=== PATIENT | female | born 2000 | race African-American/Black ===

== ENCOUNTER 2023-08-14 19:50 | Observation (INO) ==
[2023-08-14 20:04] VITALS: BP 134/89; RESP 16
[2023-08-14] MEDS: SODIUM CHLORIDE 1,000 ML IV ONE ×2 (20:18→21:18)
[2023-08-14 20:20] LABS: BASOPHILS % (AUTO) 0.3 % (0.0-3.0); EOSINOPHILS # (AUTO) 0.2 K/ul (0.0-0.7); EOSINOPHILS % (AUTO) 2.1 % (0.0-7.0); HEMATOCRIT 40.6 % (37.0-47.0); HEMOGLOBIN 13.6 g/dl (12.0-16.0); IMMATURE GRANULOCYTE % (AUTO) 0.2 % (0.0-5.0); LYMPHOCYTES # (AUTO) 2.8 K/uL (0.60-3.4); LYMPHOCYTES % (AUTO) 28.3 (10.0-50.0); MEAN CORPUSCULAR HEMOGLOBIN 31.1 pg (27.0-31.0); MEAN CORPUSCULAR HGB CONC 33.5 (31.8-35.4); MEAN CORPUSCULAR VOLUME 92.7 fl (81.0-99.0); MONOCYTES # (AUTO) 0.8 K/uL (0.4-2.0); MONOCYTES % (AUTO) 7.7 (0-10); NEUTROPHILS % (AUTO) 61.4 % (42.2-75.2); PLATELET COUNT 277 10^3/uL (140-440); RDW COEFFICIENT OF VARIATION 12.5 % (11.6-14.8); RED BLOOD COUNT 4.38 10^6/ul (4.20-5.40); WHITE BLOOD COUNT 9.73 K/ul (4.6-10.2)
--- NOTE | 2023-08-14 20:21 | ED.PDOC ---
General ED Provider: Dr. SHANTA CRISTOBAL MD Chief Complaint: Diabetes Stated Complaint: 23 years old female past medical history of type 1 diabetes coming to the emergency room for high blood sugar at home. Patient ran out of her insulin 2 days ago and has been getting high blood sugar readings she has a history of DKA before that she is complaining of feeling weak and abdominal pain with nausea. Otherwise she denies any fever, chest pain, shortness of breath, change in bowel or urine. Time Seen by Provider: 08/14/23 20:00 Information Source: Patient Nursing and Triage Documentation Reviewed and Agree: Yes What is Opioid Naive?: *Opioid Naive implies the patient is not already taking opioids or not chronically receiving opioids on a daily basis. *PRN dosing is not "usually" associated with tolerance. *Patients are at higher risk of over-sedation and aspiration. What is Opioid Tolerant?: *Opioid Tolerance implies less than the expected response to an opioid. *Acquired tolerance is defined by the patient taking 60mg of oral morphine daily (or equianalgesic dose of another opioid) for 1 week or more. *Often associated with chronic pain. *May take more than usual dose to achieve desired pain control. Review of Systems Review Of Systems Constitutional: Reports Weakness All Other Systems: Reviewed and Negative PFSH Female Reproductive History Menstrual Hx Hysterectomy: No Hx Tubal Ligation: No Physical Exam Physical Exam Appearance: Reports Well-appearing Ill-appearing: None Pain Distress: None Eyes: Reports MARILIA Respiratory: Reports Airway patent, Breath sounds clear and Breath sounds equal Cardiovascular: Reports RRR, Pulses normal, No rub and No murmur Musculoskeletal: Reports Normal strength, ROM intact and No edema Neurological: Reports Sensation intact, Motor intact, Alert and Oriented Psychiatric: Reports Affect appropriate Interpretation EKG Interpretation EKG Interpretation By: ED Physician Time of EKG #1: 20:34 Rate: Normal Rhythm: Sinus Ectopy: None Pickrell: NL ST Segment: Normal Interpretation: no signs of acute ischemia Course Course 08/14/23 20:09 08/14/23 20:09 Orders, Labs, Meds: Lab Review 08/14/23 08/14/23 08/14/23 20:09 20:30 20:45 WBC 9.73 RBC 4.38 Hgb 13.6 Hct 40.6 MCV 92.7 MCH 31.1 H MCHC 33.5 RDW Coeff of Jeffy 12.5 Plt Count 277 Immature Gran % (Auto) 0.2 Neut % (Auto) 61.4 Lymph % (Auto) 28.3 [place] % (Auto) 7.7 Eos % (Auto) 2.1 Baso % (Auto) 0.3 Neut # (Auto) 6.0 Lymph # (Auto) 2.8 [place] # (Auto) 0.8 Eos # (Auto) 0.2 Baso # (Auto) 0.0 Immature Gran # (Auto) 0.0 VBG pH 7.35 VBG pCO2 48 VBG pO2 24 L VBG HCO3 26.5 H VBG O2 Saturation 38.9 L Sodium 126.0 L Potassium 4.40 Chloride 96.0 L Carbon Dioxide 23.0 Anion Gap 11.40 BUN 10.0 Creatinine 0.50 L Estimated GFR (MDRD) 185.00 BUN/Creatinine Ratio 20.00 Glucose 745.8 H* Hemoglobin A1c 11.48 H Calcium 8.80 Total Bilirubin 0.40 AST 22.0 ALT 17.0 Alkaline Phosphatase 106.0 Total Protein 7.20 Albumin 3.70 Globulin 3.50 Albumin/Globulin Ratio 1.05 Urine Color Other Urine Clarity Clear Urine pH 7.0 Ur Specific [place] 1.015 Urine Protein Negative Urine Glucose (UA) 2+ H Urine Ketones 2+ H Urine Blood 1+ H Urine Nitrite Negative Urine Bilirubin Negative Urine Urobilinogen 0.2 Ur Leukocyte Esterase Negative Urine Microscopic RBC 0-2 Ur Squamous Epith Cells 2-5 Orders Category Date Time Status ADMIT OBSERVATION [PLACE PATIENT OBSERVATION] .TO ADMISSION 08/14/23 21:46 Active MEDSURG (MONITORED BED) EKG-(ED ONLY) Stat CARDIO 08/14/23 21:09 Ordered ACCUCHECK (MED/SURG, SCU) [BLOOD GLUCOSE MONITORING ( CARE 08/14/23 21:46 Active MED/SURG)] Q1HR ACTIVITY .Early Mobilization for VTE Prevention CARE 08/14/23 21:46 Active INTAKE & OUTPUT Q8HR CARE 08/14/23 21:48 Active REMINDER: Give Insulin if Needed Q1HR CARE 08/14/23 21:46 Active TELEMETRY MONITORING TELE CARE 08/14/23 21:46 Active VITAL SIGNS Q4HR CARE 08/14/23 21:48 Active NOTHING BY MOUTH DIETARY 08/15/23 Breakfast Ordered ACCUCHECK (ED) [ED ACCUCHECK ASSESSMENT] Q1-2H EMERGENCY 08/14/23 20:48 Active Saline Lock [ED IV/MEDIPORT/POWERPORT] .ONCE EMERGENCY 08/14/23 20:14 Active BMP [BASIC METABOLIC PANEL] Timed LAB 08/15/23 01:00 Ordered CBC W/ AUTO DIFF DAILY@0600 LAB 08/15/23 06:00 Ordered CBC W/ AUTO DIFF DAILY@0600 LAB 08/16/23 06:00 Ordered CBC W/ AUTO DIFF Stat LAB 08/14/23 20:09 Completed CMP [COMPREHENSIVE METABOLIC PANEL] Stat LAB 08/14/23 20:09 Completed COMPREHENSIVE METABOLIC PANEL DAILY@0600 LAB 08/15/23 06:00 Ordered COMPREHENSIVE METABOLIC PANEL DAILY@0600 LAB 08/16/23 06:00 Ordered HEMOGLOBIN A1C Stat LAB 08/14/23 20:09 Completed URINALYSIS C & S IF INDICATED Stat LAB 08/14/23 20:30 Completed VBG [VENOUS BLOOD GAS] Stat LAB 08/14/23 20:45 Completed 0.9 % Sodium Chloride [Saline Flush] Meds 08/14/23 20:14 Active 1 syr IVF PRN PRN Acetaminophen [Tylenol] Meds 08/14/23 21:46 Active 650 mg PO Q4H PRN Dextrose 50 % in Water [Dextrose 50%-Water Abboject] Meds 08/14/23 21:46 Active 50 ml IVP ONCE PRN Insulin Glargine,Hum.rec.anlog [Lantus] Meds 08/15/23 09:00 Active 30 unit SUBCUT DAILY Insulin Regular, Human [Humulin R] Meds 08/14/23 21:02 Discontinued 15 unit SUBCUT ONCE STA Insulin Regular, Human [Humulin R] Meds 08/14/23 20:14 Discontinued 8 unit IVP ONCE STA Insulin Regular, Human [Humulin R] Meds 08/14/23 21:46 Active See Protocol SUBCUT PRN PRN Sodium Chloride 0.9% [Sodium Chloride] 1,000 ml Meds 08/14/23 21:32 Active IV 125 mls/hr Sodium Chloride 0.9% [Sodium Chloride] 1,000 ml Meds 08/14/23 22:00 Active IV 125 mls/hr Sodium Chloride 0.9% [Sodium Chloride] 1,000 ml Meds 08/14/23 20:14 Discontinued IV BOLUS Medications Generic Name Dose Route Start Last Admin Trade Name Maribeth PRN Reason Stop Dose Admin Acetaminophen 650 mg 08/14/23 21:46 Acetaminophen 325 Mg Tablet PO Q4H PRN Mild Pain Dextrose 50 ml 08/14/23 21:46 Dextrose 50 % In Water 50 Ml Disp.Syrin IVP ONCE PRN Unconscious Hypoglycemia Protocol Sodium Chloride 1,000 mls @ 125 mls/hr 08/14/23 22:00 08/14/23 22:03 Sodium Chloride IV Not Given .Q8H RONNY Insulin Glargine 30 unit 08/15/23 09:00 Insulin Glargine,Hum.Rec.Anlog 100 Units/Ml SUBCUT DAILY RONNY Insulin Human Regular 0 unit 08/14/23 21:46 Insulin Regular, Human 100 Unit/Ml (10ml) Vial SUBCUT PRN PRN Hyperglycemia Protocol Ondansetron HCl 4 mg 08/14/23 21:55 Ondansetron Hcl/Pf 4 Mg/2 Ml Sdv IVP Q6H PRN Nausea / Vomiting Sodium Chloride 1 syr 08/14/23 20:14 0.9% Sodium Chloride 10 Ml Disp.Syrin IVF PRN PRN To flush IV Discontinued Medications Generic Name Dose Route Start Last Admin Trade Name Maribeth PRN Reason Stop Dose Admin Sodium Chloride 1,000 mls @ 1,000 mls/hr 08/14/23 20:14 08/14/23 21:18 Sodium Chloride IV 08/14/23 21:13 Infused BOLUS ONE Infusion Sodium Chloride 1,000 mls @ 125 mls/hr 08/14/23 21:32 08/14/23 21:18 Sodium Chloride IV 08/15/23 05:31 125 mls/hr .Q8H ONE Administration Insulin Human Regular 8 unit 08/14/23 20:14 08/14/23 20:22 Insulin Regular, Human 100 Unit/Ml (10ml) Vial 0.1 unit/kg (8 unit) 08/14/23 20:15 8 unit IVP Administration ONCE STA Insulin Human Regular 15 unit 08/14/23 21:02 08/14/23 21:23 Insulin Regular, Human 100 Unit/Ml (10ml) Vial SUBCUT 08/14/23 21:03 15 unit ONCE STA Administration Vital Signs: Temp Pulse Resp BP Pulse Ox 08/14/23 19:52 98.8 F 86 16 134/89 100 Patient with type 1 diabetes, with HHS blood sugar 750 no DKA no other abnormality patient was given 8 units of regular insulin IV and 15 units of insulin subcutaneous blood sugar readings still above 500. Called the hospitalist on-call Mario discussed the patient case with her and she accepted the patient to be admitted under her service for further blood sugar control. Discharge Plan Discharge Patient Disposition: ADMITTED INPATIENT Discharge Problem: Hyperosmolar hyperglycemic state (HHS) Did you review [place] EXTRACTOR MACHINE OPERATOR for ALL controlled substances?: Not Applicable ED Provider: SHANTA CRISTOBAL Condition: Stable Physician Progress Note: []
[2023-08-14] MEDS: HUMULIN R IVP STA (20:22)
[2023-08-14 20:36] LABS: BILIRUBIN,URINE Negative (NEGATIVE); CLARITY,URINE Clear (CLEAR); GLUCOSE, URINE (UA) 2+ (NEGATIVE); KETONES,URINE 2+ (NEGATIVE); LEUKOCYTE ESTERASE ,URINE Negative (NEGATIVE); NITRITE,URINE Negative (NEGATIVE); PROTEIN,URINE Negative (NEGATIVE); URINE, BLOOD 1+ (NEGATIVE); UROBILINOGEN,URINE 0.2 (0.2)
[2023-08-14 20:37] LABS: ALBUMIN 3.7 g/dL (3.5-5.0); BILIRUBIN,TOTAL 0.4 mg/dL (0.2-1.3); CALCIUM 8.8 mg/dL (8.4-10.2); CREATININE 0.5 mg/dL (0.60-1.30); POTASSIUM 4.4 mmol/L (3.5-5.1); TOTAL PROTEIN 7.2 g/dL (6.3-8.2)
[2023-08-14 20:51] LABS: COLOR,URINE OTHER (YELLOW)
[2023-08-14 20:53] LABS: URINE RBC, MICROSCOPIC 0-2 (0-2)
[2023-08-14 20:57] LABS: VBG HCO3 26.5 (22-26); VBG PH 7.35 (7.30-7.40)
[2023-08-14 20:58] LABS: VBG OXYGEN SATURATION 38.9 (60-80)
[2023-08-14 21:01] LABS: GLUCOSE 745.8 mg/dL (74-106)
[2023-08-14] MEDS: HUMULIN R SUBCUT STA (21:23)
[2023-08-14] MEDS ORDERED: TYLENOL PO PRN (21:46)
[2023-08-14] MEDS ORDERED: DEXTROSE 50%-WATER ABBOJECT IVP PRN (21:46)
[2023-08-14] MEDS ORDERED: HUMULIN R SUBCUT PRN (21:46)
[2023-08-14] MEDS ORDERED: ZOFRAN 4 MG/2 ML IVP PRN (21:55)
[2023-08-14] MEDS: SODIUM CHLORIDE 1,000 ML IV SCH (22:03)
[2023-08-14 22:37] LABS: SARS COV-2 RNA RAPID NAAT NEGATIVE (NEGATIVE)
[2023-08-14] MEDS: HUMULIN R SUBCUT ONE (23:38)
[2023-08-15 00:07] VITALS: PULSE 84; TEMP 97.7; BMI 28.4
[2023-08-15] MEDS ORDERED: LANTUS SUBCUT SCH (09:00)
--- NOTE | 2023-08-15 09:49 | PCM.SS ---
Provider Provider: MOO HAYES, [facility] Ad[facility] Date Admission Date: 08/14/23 Discharge Date Discharge Date: 08/15/23 Chief Complaint Reason For Visit: HHS History of Present Illness History of Present Illness: Admitted 08/14/23 21:53, this 23 year old AA/BLACK/F presented to the ER with complaints of lower abdominal cramping and nausea. Has pmh of type 1 diabetes. "Ran out of her insulin and needed new prescription from pcp in which she was unable to get". Blood glucose was found to be in 700s in ER without evidence of DKA. Admitted for HHS and hypokalemia. Around midnight patient reported to the nurse that she was anxious and was not staying here any longer. Nurse explained risks of leaving and benefits of staying. Patient left regardless. This HPI provided from ER provider on admission. This provider application project leader and accepted patient but no physical exam completed prior to patient leaving AMA. [facility] Social History Smoking and tobacco status: Never smoker Medications Mecications: Medications at Discharge (Home Meds & RX) insulin NPH-regular 70-30 U-100 insulin 100 unit/mL subcutaneous pen 2 unit (0.02 mL) subcut PRN PRN hyperglycemia #15 mL 07/28/23 insulin degludec 100 unit/mL (3 mL) subcutaneous pen 30 unit subcut DAILY 07/28/23 insulin lispro 100 unit/mL subcutaneous pen 1 sliding scale dose subcut TID-QID 07/28/23 Allergies Allergies Allergy/AdvReac Type Severity Reaction Status Date / Time No Known Allergies Allergy Verified 08/14/23 20:01 Labs This Visit Labs This Visit: Labs This Visit 08/14/23 08/14/23 08/14/23 20:09 20:30 20:45 WBC 9.73 RBC 4.38 Hgb 13.6 Hct 40.6 MCV 92.7 MCH 31.1 H MCHC 33.5 RDW Coeff of Jeffy 12.5 Plt Count 277 Immature Gran % (Auto) 0.2 Neut % (Auto) 61.4 Lymph % (Auto) 28.3 [place] % (Auto) 7.7 Eos % (Auto) 2.1 Baso % (Auto) 0.3 Neut # (Auto) 6.0 Lymph # (Auto) 2.8 [place] # (Auto) 0.8 Eos # (Auto) 0.2 Baso # (Auto) 0.0 Immature Gran # (Auto) 0.0 VBG pH 7.35 VBG pCO2 48 VBG pO2 24 L VBG HCO3 26.5 H VBG O2 Saturation 38.9 L Sodium 126.0 L Potassium 4.40 Chloride 96.0 L Carbon Dioxide 23.0 Anion Gap 11.40 BUN 10.0 Creatinine 0.50 L Estimated GFR (MDRD) 185.00 BUN/Creatinine Ratio 20.00 Glucose 745.8 H* Hemoglobin A1c 11.48 H Calcium 8.80 Total Bilirubin 0.40 AST 22.0 ALT 17.0 Alkaline Phosphatase 106.0 Total Protein 7.20 Albumin 3.70 Globulin 3.50 Albumin/Globulin Ratio 1.05 Urine Color Other Urine Clarity Clear Urine pH 7.0 Ur Specific [place] 1.015 Urine Protein Negative Urine Glucose (UA) 2+ H Urine Ketones 2+ H Urine Blood 1+ H Urine Nitrite Negative Urine Bilirubin Negative Urine Urobilinogen 0.2 Ur Leukocyte Esterase Negative Urine Microscopic RBC 0-2 Ur Squamous Epith Cells 2-5 SARS CoV-2 RNA Rapid MARY 08/14/23 08/14/23 21:55 23:00 WBC RBC Hgb Hct MCV MCH MCHC RDW Coeff of Jeffy Plt Count Immature Gran % (Auto) Neut % (Auto) Lymph % (Auto) [place] % (Auto) Eos % (Auto) Baso % (Auto) Neut # (Auto) Lymph # (Auto) [place] # (Auto) Eos # (Auto) Baso # (Auto) Immature Gran # (Auto) VBG pH VBG pCO2 VBG pO2 VBG HCO3 VBG O2 Saturation Sodium Potassium Chloride Carbon Dioxide Anion Gap BUN Creatinine Estimated GFR (MDRD) BUN/Creatinine Ratio Glucose 468.9 H D Hemoglobin A1c Calcium Total Bilirubin AST ALT Alkaline Phosphatase Total Protein Albumin Globulin Albumin/Globulin Ratio Urine Color Urine Clarity Urine pH Ur Specific [place] Urine Protein Urine Glucose (UA) Urine Ketones Urine Blood Urine Nitrite Urine Bilirubin Urine Urobilinogen Ur Leukocyte Esterase Urine Microscopic RBC Ur Squamous Epith Cells SARS CoV-2 RNA Rapid MARY Negative Review Review Statement: I have independently reviewed and interpreted the labs/EKGs/imaging that were ordered by the ER provider. I have reviewed all outside records that are available currently in our EMR including imaging/notes/labs from previous visits. Plan Reccomendations/Plan: HHS - accuchecks Q1H with ssi, NS@125mL/hr, reordered home long acting insulin to start in AM, NPO except water/ice chips, bmp ordered for 99 that was not completed due to patient leaving AMA Hyponatremia - NS@125mL/hr Home medications continued, no changes made. Additional Planning: Case discussed with ED Physician, Dr. Charles. DVT Prophylaxis: Ambulation Disposition: Admit to: Med/Surg Observation Discussed Plan of Care with Dr. Sissy Younger If patient discharged with Left Ventricular Systolic Dysfunction: NA Discharged with a beta imani? [] If no, why not? [] Discharged with an neelam/arb? [] If no, why not? [] DX: HHS RX: NONE DIABETIC DIET ACTIVITY TOLERATED FOLLOW-UP WITH PCP KADEN Review With Patient Reviewed with Patient and Family: Patient and family have been counseled on condition and care plan and have no immediate questions. I have personally discussed and reviewed the patient's visit/current labs/imaging/decision making with Dr. Mohini Younger, my supervising attending. Total number of minutes spent with patient 85 min. More than 50% of the time spent with this patient was devoted to counseling and coordination of care. Time of Admission:08/14/23 21:53 Time of Discharge: 08/15/23 00:30 Discharge Plan Discharge Discharge Orders: Discharge Patient (ONCE); Ordered 08/15/23 Ordered By: ELLYN HOLLIS Activity Restrictions/Additional Instructions: LEFT AGAINST MEDICAL ADVICE (AMA) FOLLOW UP WITH YOUR PRIMARY CARE PROVIDER IN AM. Patient Disposition: AMA Prescriptions: Continued insulin degludec 100 unit/mL (3 mL) insulin pen 30 unit SUBCUT DAILY Patient Comments: ADMINISTER 30 UNITS UNDER THE SKIN EVERY DAY insulin lispro 100 unit/mL insulin pen 1 sliding scale dose SUBCUT TID-QID Patient Comments: INJECT 1 UNIT PER 10 CARBS EACH MEAL. MAX DAILY DOSE OF 20 UNITS insulin NPH and regular human 100 unit/mL (70-30) insulin pen 2 unit subcut PRN PRN (Reason: hyperglycemia) Qty: 15 0RF Did you review [place] SUPERVISOR PROP MAKING for ALL controlled substances?: Not Applicable Discussed opioids are addictive and Narcan is available by prescription or from pharmacy.: Yes Condition: Stable
== END 2023-08-15 00:30 | disposition left against medical advice (07) ==
LOC: MEDSURG B 19:50 → ED 19:50 → MEDSURG B 22:44
PROVIDERS: ADMIT Hospitalist; ATTEND Nurse Practitioner Family
DX: Z51.81 Encounter for therapeutic drug level monitoring; Z79.899 Other long term (current) drug therapy; Z20.822 Contact with and (suspected) exposure to COVID-19; Z79.4 Long term (current) use of insulin; E87.6 Hypokalemia; E10.65 Type 1 diabetes mellitus with hyperglycemia; E87.1 Hypo-osmolality and hyponatremia; E10.69 Type 1 diabetes mellitus with other specified complication

== ENCOUNTER 2023-10-07 06:21 | Observation (INO) ==
[2023-10-07] MEDS: ZOFRAN 4 MG/2 ML IVP STA (06:33)
[2023-10-07] MEDS: SODIUM CHLORIDE 1,000 ML IV ONE ×2 (06:34→07:59)
[2023-10-07 06:53] LABS: BASOPHILS % (AUTO) 0.2 % (0.0-3.0); EOSINOPHILS # (AUTO) 0.1 K/ul (0.0-0.7); EOSINOPHILS % (AUTO) 0.5 % (0.0-7.0); HEMATOCRIT 44.2 % (37.0-47.0); HEMOGLOBIN 14.7 g/dl (12.0-16.0); IMMATURE GRANULOCYTE # (AUTO) 0.1 (0.0-1.0); IMMATURE GRANULOCYTE % (AUTO) 0.3 % (0.0-5.0); LYMPHOCYTES # (AUTO) 2.3 K/uL (0.60-3.4); LYMPHOCYTES % (AUTO) 12.4 (10.0-50.0); MEAN CORPUSCULAR HEMOGLOBIN 30.2 pg (27.0-31.0); MEAN CORPUSCULAR HGB CONC 33.3 (31.8-35.4); MEAN CORPUSCULAR VOLUME 90.8 fl (81.0-99.0); MONOCYTES # (AUTO) 0.6 K/uL (0.4-2.0); MONOCYTES % (AUTO) 3.3 (0-10); NEUTROPHILS # (AUTO) 15.2 K/ul (2.0-6.9); NEUTROPHILS % (AUTO) 83.3 % (42.2-75.2); PLATELET COUNT 319 10^3/uL (140-440); RDW COEFFICIENT OF VARIATION 13.5 % (11.6-14.8); RED BLOOD COUNT 4.87 10^6/ul (4.20-5.40); WHITE BLOOD COUNT 18.26 K/ul (4.6-10.2)
[2023-10-07] MEDS: HUMULIN R IVP STA (06:56)
[2023-10-07 07:03] LABS: BILIRUBIN,URINE Negative (NEGATIVE); CLARITY,URINE Clear (CLEAR); COLOR,URINE Yellow (YELLOW); GLUCOSE, URINE (UA) 2+ (NEGATIVE); KETONES,URINE 4+ (NEGATIVE); LEUKOCYTE ESTERASE ,URINE Negative (NEGATIVE); NITRITE,URINE Negative (NEGATIVE); PH,URINE 5.5 (5-9); PROTEIN,URINE Negative (NEGATIVE); URINE, BLOOD Trace-intact (NEGATIVE); UROBILINOGEN,URINE 0.2 (0.2)
[2023-10-07 07:06] LABS: BACTERIA,URINE TRACE (NOT PRESENT); SQUAMOUS EPITHELIAL CELL,UR 0-2 (0-5); URINE WBC, MICROSCOPIC 0-2 (0-2)
[2023-10-07 07:07] LABS: ALANINE AMINOTRANSFERASE 18.5 U/L (0-35); ALBUMIN 4.15 g/dL (3.5-5.0); ALKALINE PHOSPHATASE 106.2 U/L (38-126); ASPARTATE AMINO TRANSFERASE 31.5 U/L (14-36); BILIRUBIN,TOTAL 0.88 mg/dL (0.2-1.3); BLOOD UREA NITROGEN 9.3 mg/dL (7-17); CALCIUM 9.51 mg/dL (8.4-10.2); CARBON DIOXIDE 10.2 mmol/L (22-30.0); CHLORIDE 102.7 mmol/L (98-107); CREATININE 0.47 mg/dL (0.60-1.30); MAGNESIUM 1.75 mg/dL (1.6-2.3); PHOSPHORUS 4.21 mg/dL (2.5-4.5); POTASSIUM 4.33 mmol/L (3.5-5.1); SODIUM 134.9 mmol/L (134.5-145); TOTAL PROTEIN 7.26 g/dL (6.3-8.2)
[2023-10-07 07:15] LABS: VBG HCO3 12.6 (22-26); VBG OXYGEN SATURATION 91.8 (60-80); VBG PH 7.26 (7.30-7.40)
[2023-10-07 07:20] LABS: GLUCOSE 573.1 mg/dL (74-106); TROPONIN I < 0.012 ng/ml (0.0000-0.120)
--- NOTE | 2023-10-07 07:36 | ED.PDOC ---
General ED Provider: Dr. JAVIER KOO DO Chief Complaint: Diabetes Stated Complaint: Patient is a 23 yo F here high Blood Sugar Patient is a DM1 patient with lantus and lispro insulin regimen She repotts she is under stress Fighting with family and living in a hotel She reports she is being treated for trichomoniasis and UTI at the moment She has not been eating very well or paying attention to her sugars She is alert and orietned x4 GCS 15 Patient stable Patent pleasant to speak with She denies chest pain or abdominal pain I assumed care from Dr. Boo She had high sugar in the field 2x fluid boluses and insulin drip started Patient amenable to admission Time Seen by Provider: 10/07/23 06:47 Information Source: Patient Nursing and Triage Documentation Reviewed and Agree: Yes What is Opioid Naive?: *Opioid Naive implies the patient is not already taking opioids or not chronically receiving opioids on a daily basis. *PRN dosing is not "usually" associated with tolerance. *Patients are at higher risk of over-sedation and aspiration. What is Opioid Tolerant?: *Opioid Tolerance implies less than the expected response to an opioid. *Acquired tolerance is defined by the patient taking 60mg of oral morphine daily (or equianalgesic dose of another opioid) for 1 week or more. *Often associated with chronic pain. *May take more than usual dose to achieve desired pain control. Review of Systems Review Of Systems Constitutional: Reports Weakness; Denies Chills or Fever Eyes: Denies Blindness or Vision change Ears, Nose, Mouth, Throat: Denies Ear pain, Ear discharge or Nose pain Respiratory: Denies Cough or Wheezing Cardiac: Denies Chest pain, Irregular heart rate or Palpitations GI: Denies Abdomen distended, Constipated or Diarrhea : Reports Dysuria and Frequency; Denies Flank pain or Hematuria Musculoskeletal: Denies Back pain or Joint pain Skin: Denies Bruising or Rash Neurological: Denies Anxiety or Depressed Endocrine: Reports Flushing and Increased thirst Hematologic/Lymphatic: Reports No symptoms All Other Systems: Reviewed and Negative [facility] Social History Smoking and tobacco status: Never smoker Female Reproductive History Menstrual Hx Hysterectomy: No Hx Tubal Ligation: No Physical Exam Physical Exam Appearance: Reports Well-appearing and Well-nourished Ill-appearing: Moderate Pain Distress: Not Applicable Eyes: Reports MARILIA, EOMI and Conjunctiva clear ENT: Reports Ears normal, Nose normal, Oropharynx normal and Other (Uvula midline) Neck: Supple Respiratory: Reports Airway patent, Breath sounds clear and Other (RR 20); Denies Crackles, Rhonchi or Wheezes Cardiovascular: Reports RRR and Pulses normal GI/: Reports Soft, Nontender and Other (no fluid wave, negative fernandez sign no mcburney point ttp) Musculoskeletal: Reports Normal strength and ROM intact Skin: Reports Warm and Dry Neurological: Reports Sensation intact and Motor intact Psychiatric: Reports Affect appropriate and Mood appropriate Interpretation Radiology Interpretation Radiology Interpretation By: ED Physician Radiology Results: Negative Exam Interpreted: CXR Xray Comments: No gross rib fractures or consolidations Course Course 10/07/23 06:40 10/07/23 06:40 Orders, Labs, Meds: Lab Review 10/07/23 10/07/23 10/07/23 06:40 06:45 07:05 WBC 18.26 H RBC 4.87 Hgb 14.7 Hct 44.2 MCV 90.8 MCH 30.2 MCHC 33.3 RDW Coeff of Jeffy 13.5 Plt Count 319 Immature Gran % (Auto) 0.3 Neut % (Auto) 83.3 H Lymph % (Auto) 12.4 [place] % (Auto) 3.3 Eos % (Auto) 0.5 Baso % (Auto) 0.2 Neut # (Auto) 15.2 H Lymph # (Auto) 2.3 [place] # (Auto) 0.6 Eos # (Auto) 0.1 Baso # (Auto) 0.0 Immature Gran # (Auto) 0.1 VBG pH 7.26 L VBG pCO2 28 L VBG pO2 73 H VBG HCO3 12.6 L VBG O2 Saturation 91.8 H Sodium 134.9 Potassium 4.33 Chloride 102.7 Carbon Dioxide 10.2 L Anion Gap 26.33 BUN 9.3 Creatinine 0.47 L Estimated GFR (MDRD) 199.00 BUN/Creatinine Ratio 19.78 Glucose 573.1 H* Lactic Acid 1.98 Calcium 9.51 Phosphorus 4.21 Magnesium 1.75 Total Bilirubin 0.88 AST 31.5 ALT 18.5 Alkaline Phosphatase 106.2 Troponin I < 0.012 Total Protein 7.26 Albumin 4.15 Globulin 3.11 Albumin/Globulin Ratio 1.33 Urine Color Yellow Urine Clarity Clear Urine pH 5.5 Ur Specific [place] 1.015 Urine Protein Negative Urine Glucose (UA) 2+ H Urine Ketones 4+ Urine Blood Trace-intact H Urine Nitrite Negative Urine Bilirubin Negative Urine Urobilinogen 0.2 Ur Leukocyte Esterase Negative Urine Microscopic RBC 2-5 Urine Microscopic WBC 0-2 Ur Squamous Epith Cells 0-2 Urine Bacteria Trace Acetone, Qual Small Orders Category Date Time Status ADMIT PATIENT INPATIENT .TO [facility] (MONITORED BED) ADMISSION 10/07/23 07:46 Active TELEMETRY MONITORING TELE CARE 10/07/23 07:46 Active ACETONE, QUALITATIVE Stat LAB 10/07/23 06:40 Completed CBC W/ AUTO DIFF Stat LAB 10/07/23 06:40 Completed COMPREHENSIVE METABOLIC PANEL Stat LAB 10/07/23 06:40 Completed LACTIC ACID Stat LAB 10/07/23 06:40 Completed MAGNESIUM Stat LAB 10/07/23 06:40 Completed PHOSPHORUS Stat LAB 10/07/23 06:40 Completed TEST URINE [URINE ] Stat LAB 10/07/23 07:42 Uncollected SARS COV-2 RNA RAPID MARY Stat LAB 10/07/23 Uncollected TROPONIN I Stat LAB 10/07/23 06:40 Completed URINALYSIS C & S IF INDICATED Stat LAB 10/07/23 06:45 Completed VBG [VENOUS BLOOD GAS] Stat LAB 10/07/23 07:05 Completed Insulin Regular, Human [Humulin R] Meds 10/07/23 06:45 Discontinued 8 unit IVP ONCE STA Ondansetron HCl/Pf [Zofran 4 mg/2 ml] Meds 10/07/23 06:31 Discontinued 8 mg IVP ONCE STA Sodium Chloride 0.9% [Sodium Chloride] 1,000 ml Meds 10/07/23 06:31 Discontinued IV BOLUS Sodium Chloride 0.9% [Sodium Chloride] 1,000 ml Meds 10/07/23 06:45 Discontinued IV BOLUS CHEST, 1V AP ONLY Stat RADS 10/07/23 06:46 Completed Medications Discontinued Medications Generic Name Dose Route Start Last Admin Trade Name Freq PRN Reason Stop Dose Admin Sodium Chloride 1,000 mls @ 1,000 mls/hr 10/07/23 06:31 10/07/23 06:34 Sodium Chloride IV 10/07/23 07:30 1,000 mls/hr BOLUS ONE Administration Sodium Chloride 1,000 mls @ 1,000 mls/hr 10/07/23 06:45 Sodium Chloride IV 10/07/23 07:44 BOLUS ONE Insulin Human Regular 8 unit 10/07/23 06:45 10/07/23 06:56 Insulin Regular, Human 100 Unit/Ml (10ml) Vial 0.1 unit/kg (8 unit) 10/07/23 06:46 8 unit IVP Administration ONCE STA Ondansetron HCl 8 mg 10/07/23 06:31 10/07/23 06:33 Ondansetron Hcl/Pf 4 Mg/2 Ml Sdv IVP 10/07/23 06:32 8 mg ONCE STA Administration Vital Signs: Temp Pulse Resp BP Pulse Ox 10/07/23 06:26 98.6 F 100 24 H 134/78 98 MDM: Patient is a 23 yo F here for DKA patient afebrile and vitally stable Hx from patient chart review by me I assumed care from Dr. Boo Patient has been less than complaint with diet and insulin 3+ labs and 1 image result reviewed by me I consulted Hospitalist PARACHUTE PANEL JOINER and agrees with plan WDX: DKA, medication noncompliance, trichomoniasis, UTI self reported by patient acute moderate complexity DDX: I considered shock, AMS, sepsis but these are less likely SDOH: Patient needs safe housing and to follow Patient amenable to plan Pending preg test result to resume abx, since patient cannot remember Discharge Plan Discharge Patient Disposition: ADMITTED INPATIENT Discharge Problem: DKA, type 1, Trichomoniasis, UTI (urinary tract infection), Leukocytosis Did you review [place] CODING COMPLIANCE SPECIALIST for ALL controlled substances?: Not Applicable ED Provider: JAVIER KOO Condition: Stable Physician Progress Note: []
--- NOTE | 2023-10-07 07:39 | DI ---
EXAM: CHEST ONE VIEW, FRONTAL VIEW ONLY. HISTORY: Vomiting. COMPARISON: None. FINDINGS: The heart size is normal. There is no pulmonary vascular congestion. The lungs are clear . No pleural effusion or pneumothorax is seen. No acute osseous abnormality is identified. IMPRESSION: No acute cardiopulmonary process.
[2023-10-07 08:00] LABS: URINE PREGNANCY TEST NEGATIVE (NEGATIVE)
[2023-10-07 08:10] LABS: SARS COV-2 RNA RAPID NAAT NEGATIVE (NEGATIVE)
[2023-10-07] MEDS ORDERED: TYLENOL PO PRN (08:31)
[2023-10-07 09:20] VITALS: BMI 27.8
--- NOTE | 2023-10-07 09:20 | PCM ---
Date of Service Date Seen by Provider: 10/07/23 Time Seen by Provider: 09:10 Admit Day/Time Admission Date: 10/07/23 Admission Time: 07:45 Reason for Admission Chief Complaint: DKA Hospital Provider Hospital [facility]OO HAYES, [facility] History of Present Illness History of Present Illness: 23 yo female presented to the ER with nausea, vomiting, abd pain. Patient has pmh of type 1 diabetes. States that her symptoms started around 9 pm last night. Did not check her blood sugar at that time. In ER, glucose was found to be >500 and in DKA with anion gap of 26. She was given 2L IVF and bolus of 8 units of regular insulin. Patient states that she is currently living in a hotel due to some issues going on in her life and her diet has not been the best lately. Symptoms have resolved at this time and she is feeling some better. Admited med/surg inpatient for treatment of DKA. Case Discussed With Case Discussed With: Patient's case was discussed with the ER Physicians, Dr. Hernandez. [facility] Medical History (Updated 10/07/23 @ 09:20 by MOO HAYES) DKA, type 1 E10.10 - Type 1 diabetes mellitus with ketoacidosis without coma (ICD-10) Social History Smoking and tobacco status: Never smoker Allergies Allergies Allergy/AdvReac Type Severity Reaction Status Date / Time No Known Allergies Allergy Verified 10/07/23 06:41 Current Medications Home Medications insulin lispro-aabc 100 unit/mL subcutaneous pen 1 sliding scale dose subcut DIRECTED #15 mL 09/23/23 [Rx Confirmed 10/07/23 Last Taken Unknown] insulin glargine 100 unit/mL (3 mL) subcutaneous pen (Lantus Solostar U-100 Insulin) 30 unit subcut QPM 10/07/23 [History Confirmed 10/07/23 Last Taken Unknown] Home Acetaminophen (Acetaminophen 325 Mg Tablet) 650 mg PO Q4H PRN PRN Reason: Mild Pain Potassium Chloride/Sodium Chloride (Sodium Chloride 0.9%-Kcl 20 Meq) 1,000 mls @ 250 mls/hr IV .Q4H RONNY Last Admin: 10/07/23 09:36 Dose: 250 mls/hr INSULIN REGULAR IN 0.9 % NACL (Myxredlin 100 Unit/100 Ml Bag) 100 unit in 100 mls @ 7.69 mls/hr IV TITRATION RONNY; Protocol Last Admin: 10/07/23 09:37 Dose: 0.1 unit/kg/hr, 7.7 mls/hr Potassium Chloride/Dextrose/Sod Cl (D5%-Ns-Kcl 20 Meq/L Iv Sandy) 1,000 mls @ 250 mls/hr IV .Q4H RONNY Last Admin: 10/07/23 12:26 Dose: 250 mls/hr Insulin Human Regular (Insulin Regular, Human 100 Unit/Ml (10ml) Vial) 0 unit SUBCUT PRN PRN; Protocol PRN Reason: Hyperglycemia Ondansetron HCl (Ondansetron Hcl/Pf 4 Mg/2 Ml Sdv) 4 mg IVP Q6H PRN PRN Reason: Nausea / Vomiting Last Admin: 10/07/23 14:25 Dose: 4 mg Discontinued Medications Sodium Chloride (Sodium Chloride) 1,000 mls @ 1,000 mls/hr IV BOLUS ONE Stop: 10/07/23 07:30 Last Infusion: 10/07/23 07:57 Dose: Infused Sodium Chloride (Sodium Chloride) 1,000 mls @ 1,000 mls/hr IV BOLUS ONE Stop: 10/07/23 07:44 Last Admin: 10/07/23 07:59 Dose: 1,000 mls/hr Insulin Human Regular (Insulin Regular, Human 100 Unit/Ml (10ml) Vial) 8 unit 0.1 unit/kg (8 unit) IVP ONCE STA Stop: 10/07/23 06:46 Last Admin: 10/07/23 06:56 Dose: 8 unit Ondansetron HCl (Ondansetron Hcl/Pf 4 Mg/2 Ml Sdv) 8 mg IVP ONCE STA Stop: 10/07/23 06:32 Last Admin: 10/07/23 06:33 Dose: 8 mg Opioid Naive vs. Tolerant Does Patient Take Opioids?: No Is Patient Opioid Naive?: Yes What is Opioid Naive?: *Opioid Naive implies the patient is not already taking opioids or not chronically receiving opioids on a daily basis. *PRN dosing is not "usually" associated with tolerance. *Patients are at higher risk of over-sedation and aspiration. Is Patient Opioid Tolerant?: No What is Opioid Tolerant?: *Opioid Tolerance implies less than the expected response to an opioid. *Acquired tolerance is defined by the patient taking 60mg of oral morphine daily (or equianalgesic dose of another opioid) for 1 week or more. *Often associated with chronic pain. *May take more than usual dose to achieve desired pain control. Review of Systems Constitutional: Reports No symptoms Head: Reports Normocephalic Eyes: Reports No symptoms Ears: Reports No symptoms Nose: Reports No symptoms Mouth: Reports No symptoms Throat: Reports No symptoms Cardiovascular: Reports No symptoms Respiratory: Reports No symptoms Gastrointestinal: Reports Nausea, Vomiting and Abdominal pain Genitourinary: Reports No Symptoms Musculoskeletal: Reports No symptoms Endocrine: Reports No symptoms Hematology: Reports No symptoms Immunology: Reports No symptoms Neurological: Reports No symptoms Psychiatric: Reports No symptoms Physical examination Most Recent Vital Signs: Most Recent Vital Signs Temperature 98.3 F 10/07/23 08:48 Temperature Source Temporal Artery Scan 10/07/23 08:48 Temperature Source Infrared 10/07/23 06:26 Pulse Rate 87 10/07/23 08:48 Respiratory Rate 14 10/07/23 08:48 Blood Pressure 134/78 10/07/23 06:26 Blood Pressure Right Arm 103/66 10/07/23 08:48 Blood Pressure Position Sitting 10/07/23 08:48 O2 Sat by Pulse Oximetry 100 10/07/23 08:48 Oxygen Delivery Method Room Air 10/07/23 08:48 Oxygen Flow Rate 100 10/07/23 08:48 Height 5 ft 6 in 10/07/23 08:48 Weight 172 lb 10 oz 10/07/23 08:48 Telemetry Heart Rate 72 08/14/23 22:55 Appearance: Positive No Apparent Distress and Alert and Oriented x3 Skin: Positive Warm and Good Turgor HEENT: Positive Normocephalic and PERRLA Neck: Positive Supple and Midline Trachea Chest/Lungs: Positive Symmetrical With Equal Breath Sounds, Clear to Auscultation Bilaterally and Good Air Movement all 4 Lung Gardner Heart: Positive RRR and Pulses Normal GI/: Positive Soft, Nontender, Bowel Sounds Normal and No Distention Musculoskeletal: Positive Not Examined Extremities: Positive Intact Peripheral Pulses, Stable Joints Without Laxity and Good ROM in All Joints Neurological: Positive Sensation Intact, Motor intact, Alert, Oriented and Muscle Strength 5/5 in Upper and Lower Extremities Bilaterally Psychiatric: Positive Oriented x4, Appropriate Mood, Appropriate Affect, Intact Memory, Good Short-Term Recall, Good Long-Term Recall, Normal Judgement and Normal Insight Labs This Visit Labs This Visit: Labs This Visit 10/07/23 10/07/23 10/07/23 06:40 06:45 07:05 WBC 18.26 H RBC 4.87 Hgb 14.7 Hct 44.2 MCV 90.8 MCH 30.2 MCHC 33.3 RDW Coeff of Jeffy 13.5 Plt Count 319 Immature Gran % (Auto) 0.3 Neut % (Auto) 83.3 H Lymph % (Auto) 12.4 Hart % (Auto) 3.3 Eos % (Auto) 0.5 Baso % (Auto) 0.2 Neut # (Auto) 15.2 H Lymph # (Auto) 2.3 [place] # (Auto) 0.6 Eos # (Auto) 0.1 Baso # (Auto) 0.0 Immature Gran # (Auto) 0.1 VBG pH 7.26 L VBG pCO2 28 L VBG pO2 73 H VBG HCO3 12.6 L VBG O2 Saturation 91.8 H Sodium 134.9 Potassium 4.33 Chloride 102.7 Carbon Dioxide 10.2 L Anion Gap 26.33 BUN 9.3 Creatinine 0.47 L Estimated GFR (MDRD) 199.00 BUN/Creatinine Ratio 19.78 Glucose 573.1 H* Hemoglobin A1c 11.49 H Lactic Acid 1.98 Calcium 9.51 Phosphorus 4.21 Magnesium 1.75 Total Bilirubin 0.88 AST 31.5 ALT 18.5 Alkaline Phosphatase 106.2 Troponin I < 0.012 Total Protein 7.26 Albumin 4.15 Globulin 3.11 Albumin/Globulin Ratio 1.33 Urine Color Yellow Urine Clarity Clear Urine pH 5.5 Ur Specific [place] 1.015 Urine Protein Negative Urine Glucose (UA) 2+ H Urine Ketones 4+ Urine Blood Trace-intact H Urine Nitrite Negative Urine Bilirubin Negative Urine Urobilinogen 0.2 Ur Leukocyte Esterase Negative Urine Microscopic RBC 2-5 Urine Microscopic WBC 0-2 Ur Squamous Epith Cells 0-2 Urine Bacteria Trace Urine Test Negative Acetone, Qual Small SARS CoV-2 RNA Rapid MARY 10/07/23 07:50 WBC RBC Hgb Hct MCV MCH MCHC RDW Coeff of Jeffy Plt Count Immature Gran % (Auto) Neut % (Auto) Lymph % (Auto) [place] % (Auto) Eos % (Auto) Baso % (Auto) Neut # (Auto) Lymph # (Auto) Hart # (Auto) Eos # (Auto) Baso # (Auto) Immature Gran # (Auto) VBG pH VBG pCO2 VBG pO2 VBG HCO3 VBG O2 Saturation Sodium Potassium Chloride Carbon Dioxide Anion Gap BUN Creatinine Estimated GFR (MDRD) BUN/Creatinine Ratio Glucose Hemoglobin A1c Lactic Acid Calcium Phosphorus Magnesium Total Bilirubin AST ALT Alkaline Phosphatase Troponin I Total Protein Albumin Globulin Albumin/Globulin Ratio Urine Color Urine Clarity Urine pH Ur Specific [place] Urine Protein Urine Glucose (UA) Urine Ketones Urine Blood Urine Nitrite Urine Bilirubin Urine Urobilinogen Ur Leukocyte Esterase Urine Microscopic RBC Urine Microscopic WBC Ur Squamous Epith Cells Urine Bacteria Urine Test Acetone, Qual SARS CoV-2 RNA Rapid MARY Negative Imaging Imaging: EXAM: CHEST ONE VIEW, FRONTAL VIEW ONLY. HISTORY: Vomiting. COMPARISON: None. FINDINGS: The heart size is normal. There is no pulmonary vascular congestion. The lungs are clear. No pleural effusion or pneumothorax is seen. No acute osseous abnormality is identified. IMPRESSION: No acute cardiopulmonary process. Review Statement Review Statement: I have independently reviewed and interpreted the labs/EKGs/imaging that were ordered by the ER provider. I have reviewed all outside records that are available currently in our EMR including imaging/notes/labs from previous visits. Plan Plan: 1. DKA - NS+20 KCL @250mL/hr - will adjust as anion gap improves, insulin gtt, hourly accuchecks, bmp Q4H, NPO 2. Leukocytosis - secondary to DKA, no s/sx of infection, UA and chest x-ray negative, no fever, monitor 3. Type 1 DM - A1C 11, resume home insulin once DKA resolves - will adjust if needed DVT Prophylaxis: Ambulation Time Spent: Greater than 80 minutes spent with patient, 50% of the time spent with this patient was devoted to counseling and coordination of care. [facility] minutes spent discussing advance care planning. Disposition: Admit to: Med/surg Inpatient Full Code Discussed Plan of Care with Dr. Sissy Younger. Medications Medication Orders: Medications Ordered Category Date Time Status Acetaminophen [Tylenol] Meds 10/07/23 08:31 Active 650 mg PO Q4H PRN Insulin Regular in 0.9 % NaCl [Myxredlin 100 Unit/100 Meds 10/07/23 08:30 Active ml Bag] 100 unit in 100 ml IV TITRATION Ondansetron HCl/Pf [Zofran 4 mg/2 ml] Meds 10/07/23 08:31 Active 4 mg IVP Q6H PRN Potassium Chloride in 0.9%NaCl [Sodium Chloride 0.9%- Meds 10/07/23 08:30 Active KCl 20 Meq] 1,000 ml IV 250 mls/hr
[2023-10-07] MEDS: SODIUM CHLORIDE 0.9%-KCL 20 MEQ 1,000 ML IV SCH (09:36)
[2023-10-07] MEDS: MYXREDLIN 100 UNIT/100 ML BAG 100 UNIT/100 ML PLAST..BAG IV SCH (09:37)
[2023-10-07 10:53] LABS: BLOOD UREA NITROGEN 8.4 mg/dL (7-17); CALCIUM 8.63 mg/dL (8.4-10.2); CARBON DIOXIDE 10.9 mmol/L (22-30.0); CHLORIDE 108.9 mmol/L (98-107); CREATININE 0.46 mg/dL (0.60-1.30); GLUCOSE 366.6 mg/dL (74-106); POTASSIUM 4.25 mmol/L (3.5-5.1); SODIUM 136.8 mmol/L (134.5-145)
[2023-10-07] MEDS: D5%-NS-KCL 20 MEQ/L IV SOL 1,000 ML IV SCH (12:26)
[2023-10-07 14:10] VITALS: RESP 16; TEMP 98
[2023-10-07] MEDS: ZOFRAN 4 MG/2 ML IVP PRN (14:25)
[2023-10-07 14:48] VITALS: BP 91/55; PULSE 87
[2023-10-07 14:48] LABS: BLOOD UREA NITROGEN 4.4 mg/dL (7-17); CALCIUM 8.23 mg/dL (8.4-10.2); CARBON DIOXIDE 18.3 mmol/L (22-30.0); CHLORIDE 113.3 mmol/L (98-107); CREATININE 0.33 mg/dL (0.60-1.30); GLUCOSE 85.6 mg/dL (74-106); POTASSIUM 3.73 mmol/L (3.5-5.1); SODIUM 137.2 mmol/L (134.5-145)
[2023-10-07] MEDS ORDERED: HUMULIN R SUBCUT PRN (15:54)
--- NOTE | 2023-10-07 16:45 | AMA ---
IP AMA Note Reason for Admission Reason for Admission: DKA Treatment Plan/Noncompliance by Patient Treatment Plan/Noncompliance by Patient: Had taken patient off insulin gtt due to low glucose. Provided with meal. Anticipated giving lantus and observing overnight to ensure no return of DKA. Explained risks of leaving and benefits of staying. Patient verbalized understanding. Review of any systems/labs/medication Review of Systems, Labs, etc. before pt left: No complaints at this time. BMP showed closure of anion gap. Renal function and electrolytes within normal limits. Discharge Disposition Discharge Disposition: Patient left AMA at 1600. Patient's statement as to reason for leaving (if applicable): "I need to get home to be with my son. I feel better now."
--- NOTE | 2023-10-07 16:51 | PCM.SS ---
Provider [facility]AY[facility], [facility] Ad[facility] Date Admission Date: 10/07/23 Discharge Date Discharge Date: 10/07/23 Chief Complaint Reason For Visit: DKA History of Present Illness History of Present Illness: Admitted 10/07/23 08:23, this 23 year old AA/BLACK/F presented to the ER with nausea, vomiting, abd pain. Patient has pmh of type 1 diabetes. States that her symptoms started around 9 pm last night. Did not check her blood sugar at that time. In ER, glucose was found to be >500 and in DKA with anion gap of 26. She was given 2L IVF and bolus of 8 units of regular insulin. Patient states that she is currently living in a hotel due to some issues going on in her life and her diet has not been the best lately. Symptoms have resolved at this time and she is feeling some better. Admited med/surg inpatient for treatment of DKA. [facility] Medical History (Updated 10/07/23 @ 09:20 by MOO HAYES) DKA, type 1 E10.10 - Type 1 diabetes mellitus with ketoacidosis without coma (ICD-10) Social History Smoking and tobacco status: Never smoker Medications Mecications: Medications at Discharge (Home Meds & RX) insulin NPH-regular 70-30 U-100 insulin 100 unit/mL subcutaneous pen 2 unit (0.02 mL) subcut PRN PRN hyperglycemia #15 mL 07/28/23 insulin degludec 100 unit/mL (3 mL) subcutaneous pen 30 unit subcut DAILY 07/28/23 insulin degludec 100 unit/mL (3 mL) subcutaneous pen (Tresiba FlexTouch U-100 insulin) 30 unit (0.3 mL) subcut DAILY #15 mL 08/29/23 insulin degludec 100 unit/mL (3 mL) subcutaneous pen 15 unit (0.15 mL) subcut BEDTIME #15 mL 09/23/23 insulin lispro-aabc 100 unit/mL subcutaneous pen 1 sliding scale dose subcut DIRECTED #15 mL 09/23/23 insulin glargine 100 unit/mL (3 mL) subcutaneous pen (Lantus Solostar U-100 Insulin) 30 unit subcut QPM 10/07/23 Allergies Allergies Allergy/AdvReac Type Severity Reaction Status Date / Time No Known Allergies Allergy Verified 10/07/23 06:41 Review of Systems Constitutional: Reports No symptoms Head: Reports Normocephalic Eyes: Reports No symptoms Ears: Reports No symptoms Nose: Reports No symptoms Mouth: Reports No symptoms Throat: Reports No symptoms Cardiovascular: Reports No symptoms Respiratory: Reports No symptoms Gastrointestinal: Reports Nausea, Vomiting and Abdominal pain Genitourinary: Reports No Symptoms Musculoskeletal: Reports No symptoms Endocrine: Reports No symptoms Hematology: Reports No symptoms Immunology: Reports No symptoms Neurological: Reports No symptoms Psychiatric: Reports No symptoms Physical Examination Appearance: Positive No Apparent Distress and Alert and Oriented x3 Head: Positive Normocephalic Eyes: Positive MARILIA ENT: Positive Not Examined Neck: Positive Supple, Non-Tender and Trachea Midline Heart: Positive RRR and No Murmurs Respiratory: Positive Airway patent, Breath Sounds Clear, Bilaterally, Breath Sounds Equal and Respirations Nonlabored GI/: Positive Soft, Nontender, Bowel sounds normal and No Distention Extremities: Positive Pedal Pulses Palpable Bilaterally Neurological: Positive Sensation Intact, Motor Intact, Alert and Oriented Psychiatric: Positive Normal Judgement, Normal Insight, Affect Appropriate and Mood Appropriate Vital Signs (Last 4 Hours) Vital Signs Last 4 Hours: Vital Signs: Last 4 Hours 10/07/23 13:00 10/07/23 14:00 10/07/23 14:47 Temperature 98.0 F Temperature Source Temporal Artery Scan Pulse Rate 79 87 Respiratory Rate 16 Blood Pressure 88/48 L 91/55 L Blood Pressure Mean 61 67 Blood Pressure Location Left Arm Left Arm Blood Pressure Position Supine O2 Sat by Pulse Oximetry 99 Oxygen Delivery Method Room Air Room Air Telemetry Type Bedside Monitor Telemetry Monitoring Continues Telemetry Heart Rate 92 EKG NC Interval 0.14 EKG QRS Interval 0.11 H Telemetry Strip Reading nrs with bbb Labs This Visit Labs This Visit: Labs This Visit 10/07/23 10/07/23 10/07/23 06:40 06:45 07:05 WBC 18.26 H RBC 4.87 Hgb 14.7 Hct 44.2 MCV 90.8 MCH 30.2 MCHC 33.3 RDW Coeff of Jeffy 13.5 Plt Count 319 Immature Gran % (Auto) 0.3 Neut % (Auto) 83.3 H Lymph % (Auto) 12.4 [place] % (Auto) 3.3 Eos % (Auto) 0.5 Baso % (Auto) 0.2 Neut # (Auto) 15.2 H Lymph # (Auto) 2.3 [place] # (Auto) 0.6 Eos # (Auto) 0.1 Baso # (Auto) 0.0 Immature Gran # (Auto) 0.1 VBG pH 7.26 L VBG pCO2 28 L VBG pO2 73 H VBG HCO3 12.6 L VBG O2 Saturation 91.8 H Sodium 134.9 Potassium 4.33 Chloride 102.7 Carbon Dioxide 10.2 L Anion Gap 26.33 BUN 9.3 Creatinine 0.47 L Estimated GFR (MDRD) 199.00 BUN/Creatinine Ratio 19.78 Glucose 573.1 H* Hemoglobin A1c 11.49 H Lactic Acid 1.98 Calcium 9.51 Phosphorus 4.21 Magnesium 1.75 Total Bilirubin 0.88 AST 31.5 ALT 18.5 Alkaline Phosphatase 106.2 Troponin I < 0.012 Total Protein 7.26 Albumin 4.15 Globulin 3.11 Albumin/Globulin Ratio 1.33 Urine Color Yellow Urine Clarity Clear Urine pH 5.5 Ur Specific [place] 1.015 Urine Protein Negative Urine Glucose (UA) 2+ H Urine Ketones 4+ Urine Blood Trace-intact H Urine Nitrite Negative Urine Bilirubin Negative Urine Urobilinogen 0.2 Ur Leukocyte Esterase Negative Urine Microscopic RBC 2-5 Urine Microscopic WBC 0-2 Ur Squamous Epith Cells 0-2 Urine Bacteria Trace Urine Test Negative Acetone, Qual Small SARS CoV-2 RNA Rapid MARY 10/07/23 10/07/23 10/07/23 07:50 10:37 14:32 WBC RBC Hgb Hct MCV MCH MCHC RDW Coeff of Jeffy Plt Count Immature Gran % (Auto) Neut % (Auto) Lymph % (Auto) [place] % (Auto) Eos % (Auto) Baso % (Auto) Neut # (Auto) Lymph # (Auto) [place] # (Auto) Eos # (Auto) Baso # (Auto) Immature Gran # (Auto) VBG pH VBG pCO2 VBG pO2 VBG HCO3 VBG O2 Saturation Sodium 136.8 137.2 Potassium 4.25 3.73 Chloride 108.9 H 113.3 H Carbon Dioxide 10.9 L 18.3 L D Anion Gap 21.25 9.33 BUN 8.4 4.4 L Creatinine 0.46 L 0.33 L Estimated GFR (MDRD) 204.00 299.00 BUN/Creatinine Ratio 18.26 13.33 Glucose 366.6 H D 85.6 D Hemoglobin A1c Lactic Acid Calcium 8.63 8.23 L Phosphorus Magnesium Total Bilirubin AST ALT Alkaline Phosphatase Troponin I Total Protein Albumin Globulin Albumin/Globulin Ratio Urine Color Urine Clarity Urine pH Ur Specific [place] Urine Protein Urine Glucose (UA) Urine Ketones Urine Blood Urine Nitrite Urine Bilirubin Urine Urobilinogen Ur Leukocyte Esterase Urine Microscopic RBC Urine Microscopic WBC Ur Squamous Epith Cells Urine Bacteria Urine Test Acetone, Qual SARS CoV-2 RNA Rapid MARY Negative Imaging Imaging: EXAM: CHEST ONE VIEW, FRONTAL VIEW ONLY. HISTORY: Vomiting. COMPARISON: None. FINDINGS: The heart size is normal. There is no pulmonary vascular congestion. The lungs are clear. No pleural effusion or pneumothorax is seen. No acute osseous abnormality is identified. IMPRESSION: No acute cardiopulmonary process. Review Review Statement: I have independently reviewed and interpreted the labs/EKGs/imaging that were ordered by the ER provider. I have reviewed all outside records that are available currently in our EMR including imaging/notes/labs from previous visits. Plan Reccomendations/Plan: 1. DKA - NS+20 KCL @250mL/hr then transitioned to D5 NS +20 KCL @250mL/hr when BG was below 200, insulin gtt continued until anion gap closed and is now 9.3, hourly accuchecks, bmp Q4H, NPO until anion gap closed, provided meal and tolerated well 2. Leukocytosis - secondary to DKA, no s/sx of infection, UA and chest x-ray negative, no fever, monitor 3. Type 1 DM - A1C 11, resume home insulin once DKA resolves - will adjust if needed Planned to continue to observe patient overnight to avoid returning to DKA. Dis cussed risks of leaving and benefits of staying for further treatment with patient. Requesting AMA paperwork to return home to her son. Plans to resume home insulin regimen prescribed by her PCP. Additional Planning: Case discussed with ED Physician, Dr. Hernandez. DVT Prophylaxis: Ambulation Disposition: AMA Admit to: Med/Surg Inpatient Discussed Plan of Care with Dr. Sissy Younger. If patient discharged with Left Ventricular Systolic Dysfunction:NA Discharged with a beta imani? [] If no, why not? [] Discharged with an neelam/arb? [] If no, why not? [] Review With Patient Reviewed with Patient and Family: Patient and family have been counseled on condition and care plan and have no immediate questions. I have personally discussed and reviewed the patient's visit/current labs/imaging/decision making with Dr. Mohini Younger, my supervising attending. Total number of minutes spent with patient 85 min. More than 50% of the time spent with this patient was devoted to counseling and coordination of care. Time of Admission:10/07/23 08:23 Time of Discharge: 10/07/23 16:00 Discharge Plan Discharge Discharge Orders: Discharge Patient (ONCE); Ordered 10/07/23 Ordered By: ELLYN HOLLIS Activity Restrictions/Additional Instructions: DIAGNOSIS: DKA DIET: DIABETIC ACTIVITY: TOLERATED FOLLOW-UP WITH PCP SOON POSSIBLE MEDICATIONS: NO CHANGES, LEFT AMA Instructions: Diabetic Ketoacidosis (GEN) Prescriptions: Continued insulin lispro-aabc 100 unit/mL insulin pen 1 sliding scale dose subcut DIRECTED Qty: 15 0RF Rx Instructions: nor more than 10 units per injection insulin glargine [Lantus Solostar U-100 Insulin] 100 unit/mL (3 mL) insulin pen 30 unit subcut QPM Discontinued insulin degludec 100 unit/mL (3 mL) insulin pen 30 unit SUBCUT DAILY Patient Comments: ADMINISTER 30 UNITS UNDER THE SKIN EVERY DAY insulin NPH and regular human 100 unit/mL (70-30) insulin pen 2 unit subcut PRN PRN (Reason: hyperglycemia) Qty: 15 0RF insulin degludec [Tresiba FlexTouch U-100] 100 unit/mL (3 mL) insulin pen 30 unit subcut DAILY Qty: 15 0RF insulin degludec 100 unit/mL (3 mL) insulin pen 15 unit subcut BEDTIME Qty: 15 0RF Did you review [place] [employer] for ALL controlled substances?: No Discussed opioids are addictive and Narcan is available by prescription or from pharmacy.: No Condition: Stable
== END 2023-10-07 16:00 | disposition left against medical advice (07) ==
LOC: ED 06:21 → MEDSURG B 08:23 → INTOOBSV 08:23 → MEDSURG B 08:45
PROVIDERS: ADMIT Hospitalist; ATTEND Nurse Practitioner Family
DX: E10.10 Type 1 diabetes mellitus with ketoacidosis without coma; N39.0 Urinary tract infection, site not specified; Z51.81 Encounter for therapeutic drug level monitoring; A59.9 Trichomoniasis, unspecified; D72.829 Elevated white blood cell count, unspecified; Z20.822 Contact with and (suspected) exposure to COVID-19; Z79.4 Long term (current) use of insulin; Z91.199 Patient's noncompliance with other medical treatment and regimen due to unspecified reason